=== PATIENT | female | born 1955 | race Caucasian/White ===

== ENCOUNTER 2022-04-02 15:52 | Inpatient (IN) | payer MEDICARE ==
[~2022-04-02] VITALS: Ht 157.5 cm; Wt 71.7 kg
--- NOTE | 2022-04-02 18:04 | NUR ---
NOTIFIED DR PASTRANA OF PT ARRIVAL FROM [place]
[2022-04-02] MEDS ORDERED: MORPHINE SULFAT15 M2 PO (18:25)
[2022-04-02] MEDS ORDERED: ASPIRIN EC81 MG PO (18:25)
[2022-04-02] MEDS ORDERED: CLOPIDOGREL75 MG PO (18:25)
[2022-04-02] MEDS ORDERED: ALENDRONATE SOD70 MG PO (18:26)
[2022-04-02] MEDS ORDERED: SOLIFENACIN SUC10 MG PO (18:26)
[2022-04-02] MEDS ORDERED: PREDNISONE20 MG PO (18:26)
[2022-04-02] MEDS ORDERED: CYMBALTA30 MG PO (18:26)
[2022-04-02] MEDS ORDERED: CITALOPRAM HBR10 MG PO (18:28)
[2022-04-02] MEDS ORDERED: CYPROHEPTADINE H4 MG PO (18:28)
[2022-04-02] MEDS ORDERED: TRELEGY ELLIPT1 EACH INH (18:28)
[2022-04-02] MEDS ORDERED: CALCIUM 600 +1 EAC2 PO (18:28)
[2022-04-02] MEDS ORDERED: FAMOTIDINE20 MG PO (18:28)
[2022-04-02] MEDS ORDERED: LORAZEPAM0.5 MG PO ×2 (18:29)
[2022-04-02] MEDS ORDERED: AMITIZA24 MCG PO (18:29)
[2022-04-02] MEDS ORDERED: FOLIC ACID 1 MG1 MG PO (18:29)
[2022-04-02] MEDS ORDERED: TIZANIDINE HCL4 MG PO (18:30)
[2022-04-02] MEDS ORDERED: AMLODIPINE BESYL5 MG PO (18:30)
[2022-04-02] MEDS ORDERED: SIMVASTATIN80 MG PO (18:30)
[2022-04-02] MEDS ORDERED: TRAZODONE HCL50 MG PO (18:30)
[2022-04-02] MEDS ORDERED: PROTONIX 40 MG40 M1 PO (18:30)
[2022-04-02] MEDS ORDERED: IPRAT-ALBUT 0.5-3 ML INH (18:31)
[2022-04-02] MEDS ORDERED: PROMETHAZINE HC25 M1 PO (18:31)
[2022-04-03 06:29] LABS: HEMOGLOBIN 10.5 gm/dl (12.3-15.3); RED BLOOD COUNT 3.36 M/UL (4.00-5.10); WHITE BLOOD COUNT 8.3 K/UL (4.5-11.0)
[2022-04-03 06:55] LABS: BUN/CREATININE RATIO 19 (0-10)
[2022-04-04 05:37] LABS: BUN/CREATININE RATIO 22 (0-10)
[2022-04-04 05:41] LABS: HEMOGLOBIN 10.8 gm/dl (12.3-15.3); RED BLOOD COUNT 3.44 M/UL (4.00-5.10); WHITE BLOOD COUNT 7.6 K/UL (4.5-11.0)
[2022-04-05 05:50] LABS: BUN/CREATININE RATIO 24 (0-10)
[2022-04-05 06:34] LABS: HEMOGLOBIN 12.7 gm/dl (12.3-15.3)
[2022-04-05 06:38] LABS: WHITE BLOOD COUNT 9.9 K/UL (4.5-11.0)
--- NOTE | 2022-04-05 13:02 | NUR ---
PT GOING TO ROOM [id number] , CALLED AND GAVE REPORT TO REYNA SAVAGE AT THIS TIME
[2022-04-06] MEDS ORDERED: LOPRESSOR 25 MG25 MG PO (12:10)
--- NOTE | 2022-04-06 12:27 | NUR ---
PT'S O2 SAT 84% ON ROOM AIR. O2 REAPPLIED.
== END 2022-04-06 14:12 | disposition home or self-care (01) | DRG 562 ==
LOC: CCU 15:52 → MED SURG 4 04-04 10:20
PROVIDERS: ADMIT Internal Medicine Infectious Disease
PROC: 5A0935A Assistance with Respiratory Ventilation, Less than 24 Consecutive Hours, High Flow/Velocity Cannula (ICD-10-PCS; principal; 2022-04-05)
DX: S52.502A Unspecified fracture of the lower end of left radius, initial encounter for closed fracture (principal); Z20.822 Contact with and (suspected) exposure to COVID-19; J96.21 Acute and chronic respiratory failure with hypoxia; A09 Infectious gastroenteritis and colitis, unspecified; S22.42XA Multiple fractures of ribs, left side, initial encounter for closed fracture; S22.079A Unspecified fracture of T9-T10 vertebra, initial encounter for closed fracture; S22.089A Unspecified fracture of T11-T12 vertebra, initial encounter for closed fracture; E86.0 Dehydration; J44.9 Chronic obstructive pulmonary disease, unspecified; M81.0 Age-related osteoporosis without current pathological fracture; E87.6 Hypokalemia; K21.9 Gastro-esophageal reflux disease without esophagitis; M51.34 Other intervertebral disc degeneration, thoracic region; M06.9 Rheumatoid arthritis, unspecified; I10 Essential (primary) hypertension; Z86.73 Personal history of transient ischemic attack (TIA), and cerebral infarction without residual deficits; Z90.710 Acquired absence of both cervix and uterus; Z87.891 Personal history of nicotine dependence; Z82.49 Family history of ischemic heart disease and other diseases of the circulatory system; Z79.01 Long term (current) use of anticoagulants; Z79.82 Long term (current) use of aspirin
CPT/HCPCS: 36415; 71045; 72125; 72128; 72131; 72170; 73100; 80053; 83735; 83880; 85025; 85027; 94640; 94664; 94760; 97116-GP-CQ; 97161; 97166; G0378; G0379; J1335; J2270; J2405; J3480